=== PATIENT | female | born 1960 | race Caucasian/White ===

== ENCOUNTER 2021-10-06 10:18 | Outpatient (CLI) | payer MEDICARE, MEDICAID | END 2021-10-06 23:59 | disposition home or self-care (01) | LOC: RAD 10:18 | DX: M47.812 Spondylosis without myelopathy or radiculopathy, cervical region (principal); M48.02 Spinal stenosis, cervical region; M50.223 Other cervical disc displacement at C6-C7 level; M12.88 Other specific arthropathies, not elsewhere classified, other specified site; M89.38 Hypertrophy of bone, other site | CPT/HCPCS: 72125 ==